=== PATIENT | male | born 1975 | race Hispanic/Latino ===

== ENCOUNTER 2021-09-04 16:53 | Emergency (ER) | payer SELFPAY | END 2021-09-04 19:35 | disposition home or self-care (01) | LOC: CSHERS 16:53 | DX: M54.50 Low back pain, unspecified (principal); G89.29 Other chronic pain; M17.12 Unilateral primary osteoarthritis, left knee | CPT/HCPCS: 99283 ==

== ENCOUNTER 2022-12-15 02:25 | Emergency (ER) | payer BC, SELFPAY ==
[2022-12-15] MEDS ORDERED: Ketorolac Tromethamine 30 MG/ML VIAL ONE (03:49)
[2022-12-15 04:09] LABS: #Eosinphils 0.2 10x3/uL (0.0-0.5); #Monocytes 0.6 10x3/uL (0.0-1.1); #Neutrophils 3.4 10x3/uL (1.5-8.4); %Basophils 0.3 % (0.0-2.0); %Eosinophils 3.1 % (0.0-6.0); %Lymphocytes 27.6 % (18.0-47.0); %Monocytes 10.1 % (0.0-10.0); %Neutrophils 58.4 % (40.0-75.0); Hematocrit 40.5 % (38.8-50.0); Hemoglobin 14.2 g/dL (13.5-17.5); Mean Corpuscular HGB CONC 35.1 g/dL (32.0-36.0); Mean Corpuscular Hemoglobin 31.1 pg (27.0-33.0); Mean Corpuscular Volume 88.6 fl (81.2-95.1); Mean Platelet Volume 9.9 fl (7.4-10.4); Platelet Count 228 10x3/uL (150-450); RBC Distribution Width 11.9 % (11.5-14.5); Red Blood Cell (RBC) Count 4.57 10x6/uL (4.32-5.72); White Blood Cell (WBC) Count 5.8 10x3/uL (3.5-10.5)
[2022-12-15 04:17] LABS: ALT (SGPT) 29 U/L (8-55); AST (SGOT) 25 U/L (5-34); Albumin 4.2 g/dL (3.5-5.0); Alkaline Phosphatase 71 U/L (40-110); Anion Gap 13 mmol/L (10-20); BUN (Urea Nitrogen) 14 mg/dL (8.9-20.6); Bilirubin, Total 0.4 mg/dL (0.2-1.2); Calc. Creatinine Clearance 0 mL/min (70-130); Carbon Dioxide 25 mmol/L (22-29); Chloride 104 mmol/L (98-107); Estimated GFR 112; Glucose 123 mg/dL (70-105); Potassium 3.5 mmol/L (3.5-5.1); Protein, Total 7.2 g/dL (6.0-8.3); Sodium 138 mmol/L (136-145)
== END 2022-12-15 04:38 | disposition home or self-care (01) ==
LOC: CSHERS 02:25
DX: M17.12 Unilateral primary osteoarthritis, left knee (principal); F17.210 Nicotine dependence, cigarettes, uncomplicated; I10 Essential (primary) hypertension; M79.605 Pain in left leg
CPT/HCPCS: 80053; 85025; 96374; J1885

== ENCOUNTER 2023-02-26 14:05 | Emergency (ER) | payer BC ==
[2023-02-26] MEDS ORDERED: Ibuprofen 200 MG TAB ONE (15:27)
[2023-02-26] MEDS ORDERED: HYDROcodone/Acetaminophen 10/325 mg Tablet ONE (15:27)
[2023-02-26] MEDS ORDERED: Ondansetron ODT 4 MG TAB ONE (15:27)
== END 2023-02-26 15:24 | disposition home or self-care (01) ==
LOC: CSHERS 14:05
DX: S93.601A Unspecified sprain of right foot, initial encounter (principal); I10 Essential (primary) hypertension; F17.210 Nicotine dependence, cigarettes, uncomplicated; W22.8XXA Striking against or struck by other objects, initial encounter; Y92.009 Unspecified place in unspecified non-institutional (private) residence as the place of occurrence of the external cause
CPT/HCPCS: Q0162